=== PATIENT | female | born 1990 ===

== ENCOUNTER 2017-10-10 08:12 | Emergency (ER) | payer OTHER ==
--- NOTE | 2017-10-10 09:44 | C.PDOC ---
History Of Present Illness 27yo female, presents to ED complaining of left neck pain for the past two days. Patient states she woke up with the pain and worsens with movement. She reports taking Advil for her pain with relief however the pain returns. She denies any radiation of her pain; also denies any fever, chills, ear pain or throat pain. Time Seen by Provider: 10/10/17 08:25 Chief Complaint (Nursing): Upper Extremity Problem/Injury History Per: Patient History/Exam Limitations: no limitations Onset/Duration Of Symptoms: Days Current Symptoms Are (Timing): Still Present Quality Of Discomfort: "Pain" Severity: Mild Associated Symptoms: None Exacerbating Factor(s): Turning Past Medical History Reviewed: Historical Data, Nursing Documentation, Vital Signs Vital Signs: Last Vital Signs Temp 98.4 F 10/10/17 09:52 Pulse 69 10/10/17 09:52 Resp 20 10/10/17 09:52 BP 100/67 10/10/17 09:52 Pulse Ox 100 10/10/17 10:53 - Medical History PMH: No Chronic Diseases Surgical History: No Surg Hx Family History: States: No Known Family Hx - Social History Hx Alcohol Use: Yes Hx Substance Use: No - Immunization History Hx Tetanus Toxoid Vaccination: No Hx Influenza Vaccination: No Review Of Systems Constitutional: Negative for: Fever, Chills, Weakness, Malaise Eyes: Negative for: Vision Change, Redness ENT: Negative for: Ear Pain, Throat Pain Cardiovascular: Negative for: Palpitations Respiratory: Negative for: Cough, Shortness of Breath Gastrointestinal: Negative for: Vomiting, Abdominal Pain, Diarrhea Musculoskeletal: Positive for: Neck Pain. Negative for: Leg Pain Skin: Negative for: Rash Neurological: Negative for: Weakness, Numbness, Headache, Dizziness Physical Exam - Physical Exam Appears: Well, Non-toxic, No Acute Distress Skin: Normal Color, Warm, Dry Head: Atraumatic, Normacephalic Eye(s): bilateral: Normal Inspection, PERRL, EOMI Ear(s): Bilateral: Normal Nose: Normal Oral Mucosa: Moist Throat: Normal, No Erythema, No Exudate Neck: Normal ROM, No Midline Cervical Tenderness, No Step Off Deformity, Other ( Left sided SCM tenderness; left trapezius tenderness) Cardiovascular: Rhythm Regular, No Murmur Respiratory: Normal Breath Sounds, No Rales, No Rhonchi, No Wheezing Extremity: Bilateral: Atraumatic, Normal ROM Neurological/Psych: Oriented x3, Normal Speech Gait: Steady ED Course And Treatment O2 Sat by Pulse Oximetry: 100 (RA) Pulse Ox Interpretation: Normal Medical Decision Making Medical Decision Making: Impression: Left sided neck pain Plan: -- Motrin 600 mg PO -- Valium 5mg PO Re-eval: Patient reports pain is improving. She is able to fully turn neck both directions without pain. She has no vertebral tenderness. Patient advise to apply heat to area and can take analgesics as needed, Rx given. Patient stable for discharge. Patient given follow up instructions. Instructed to return to ER if symptoms worsen or new symptoms arise. Disposition Counseled Patient/Family Regarding: Diagnosis, Need For Followup, Rx Given - Disposition Disposition: HOME/ ROUTINE Disposition Time: 09:43 Condition: GOOD Additional Instructions: jim analgsicos segn sea necesario y relajante muscular para espasmos puede aplicar calor a la surinder seguimiento en la clnica para ms atelukas tanya Prescriptions: Cyclobenzaprine [Cyclobenzaprine HCl] 10 mg PO TID #21 tab Naproxen [Naprosyn] 1 tab PO BID PRN #25 tab PRN Reason: Pain Instructions: Cervical Sprain (ED) Forms: [employer] (Peruvian) Print Language: MALTESE - POA Present On Arrival: None - Clinical Impression Clinical Impression: Neck pain on left side - PA / MACHINE MAINTENANCE / Resident Statement MD/DO has reviewed & agrees with the documentation as recorded. - Scribe Statement The provider has reviewed the documentation as recorded by the Zakia Duvall Provider Scribe Attestation: All medical record entries made by the Zakia were at my direction and personally dictated by me. I have reviewed the chart and agree that the record accurately reflects my personal performance of the history, physical exam, medical decision making, and the department course for this patient. I have also personally directed, reviewed, and agree with the discharge instructions and disposition.
[2017-10-10 09:53] VITALS: BP 100/67; PULSE 69; RESP 20; TEMP 98.4
[2017-10-10 10:46] VITALS: O2SAT 100
== END 2017-10-10 09:53 | disposition home or self-care (01) ==
LOC: C.ER 08:12
DX: M54.2 Cervicalgia (principal)